=== PATIENT | male | born 1980 | race Caucasian/White ===

== ENCOUNTER → 2025-02-17 | Outpatient (REF) | payer OTHER | LOC: M LAB REF 17:55 | PROVIDERS: ATTEND Otolaryngology | DX: K11.6 Mucocele of salivary gland (principal) ==

== ENCOUNTER → 2025-04-28 | Outpatient (REF) | payer OTHER | LOC: M LAB REF 17:46 | PROVIDERS: ATTEND Otolaryngology | DX: K11.6 Mucocele of salivary gland (principal) ==